=== PATIENT | female | born 1935 | race Caucasian/White ===

== ENCOUNTER 2018-02-09 16:09 | Inpatient (IN) | payer MEDICARE ==
[2018-02-09] MEDS ORDERED: Nitroglycerin 2% Ointment 1 INCH/1 GM Packet ONE ×2 (18:33→18:35)
[2018-02-10] MEDS ORDERED: Dextrose 50% Abboject 50 ML SYRINGE SLOW IVP PRN (01:21)
[2018-02-10] MEDS ORDERED: HumaLOG 300 UNITS/3 ML VIAL SC PRN (01:21)
[2018-02-10] MEDS ORDERED: Dextrose 5% in Water 1,000 ML IV PRN (01:21)
[2018-02-10] MEDS ORDERED: Acetaminophen 325 MG TAB PO PRN (01:21)
[2018-02-10] MEDS ORDERED: Guaifenesin DM 100-10/5 ML UDCUP PO PRN (01:21)
[2018-02-10 05:52] LABS: #Eosinphils 0.2 thou/uL (0.0-0.7); #Lymphocytes 1.1 thou/uL (1.20-3.40); #Monocytes 0.4 thou/uL (0.11-0.59); #Neutrophils 2.7 thou/uL (1.40-6.50); %Eosinophils 4.5 % (0.0-10.0); %Lymphocytes 25.3 % (21.0-51.0); %Monocytes 8.8 % (0.0-10.0); %Neutrophils 60.5 % (42.0-75.0); Hemoglobin 11.6 g/dL (12.0-16.0); Mean Corpuscular HGB CONC 34.2 g/dL (32.0-36.0); Mean Corpuscular Volume 87.8 fl (81.0-99.0); Mean Platelet Volume 7.9 fL (7.4-10.4); Platelet Count 169 thou/uL (130-400); RBC Distribution Width 13.5 % (11.5-14.5); Red Blood Cell (RBC) Count 3.88 mill/uL (4.20-5.40); White Blood Cell (WBC) Count 4.5 thou/uL (4.8-10.8)
[2018-02-10] MEDS: Levothyroxine Sodium 100 MCG TAB PO SCH (06:02)
[2018-02-10 06:08] LABS: Anion Gap 9 mmol/L (10-20); BUN (Urea Nitrogen) 12 mg/dL (9.8-20.1); Calc. Creatinine Clearance 78 mL/min (70-130); Calcium 8.5 mg/dL (7.8-10.44); Carbon Dioxide 25 mmol/L (23-31); Chloride 108 mmol/L (98-107); Cholesterol 140 mg/dl (< 200 Desired); Estimated GFR-MDRD 65; Glucose 124 mg/dL (83-110); HDL Cholesterol 35 mg/dL (>60 Neg Risk); LDL Cholesterol, Calculated 80 mg/dL; Potassium 3.6 mmol/L (3.5-5.1); Triglycerides 124 mg/dL (Less than 150)
[2018-02-10 06:13] LABS: Sodium 138 mmol/L (136-145)
--- NOTE | 2018-02-10 06:31 | HP ---
REASON FOR ADMISSION: TIA. HISTORY OF PRESENT ILLNESS: The patient gives history of having fallen off a chair while at work. She could not get up. Coworkers called EMS and the next thing she knows is she was in [facility]. There are no complaints of any weakness at present. She apparently had left-sided weakness with facial droop at [facility] per ER records, but patient does not recall any of it. She currently feels good. She normally ambulates by herself. She works in an insurance company on Tuesdays and . She does mention that she has prior history of stroke in 2016 with left-sided weakness which has completely resolved and had no residual weakness. She has chronic left upper extremity paraesthesias. PAST MEDICAL AND SURGICAL HISTORY: History of prior CVA, chronic left upper extremity paraesthesia, hypothyroidism, diabetes mellitus type 2, hypertension, dyslipidemia, right knee surgery. CURRENT MEDICATIONS: The patient takes aspirin 81 mg p.o. daily, levothyroxine 100 mcg p.o. daily, Norvasc 5 mg p.o. daily, lovastatin 20 mg p.o. daily, empagliflozin/linagliptin 25/5 mg 1 tab daily. ALLERGIES: SHELLFISH and METFORMIN. PERSONAL HISTORY: Does not abuse alcohol or drugs. No history of smoking. She lives by herself. She has 1 son and 2 daughters. FAMILY HISTORY: Mother at the age of 82 years. She has had history of CVA. Father in his 80s, had cancer spread to the bones. CODE STATUS: Full. Power of state attorney is her son, Mr. Lorenzo Heart. REVIEW OF SYSTEMS: The following complete review of systems was negative, unless otherwise mentioned in the HPI or below: Constitutional: Weight loss or gain, ability to conduct usual activities. Skin: Rash, itching. Eyes: Double vision, pain. ENT/Mouth: Nose bleeding, neck stiffness, pain, tenderness. Cardiovascular: Palpitations, dyspnea on exertion, orthopnea. Respiratory: Shortness of breath, wheezing, cough, hemoptysis, fever or night sweats. Gastrointestinal: Poor appetite, abdominal pain, heartburn, nausea, vomiting, constipation, or diarrhea. Genitourinary: Urgency, frequency, dysuria, nocturia. Musculoskeletal: Pain, swelling. Neurologic/Psychiatric: Anxiety, depression. Allergy/Immunologic: Skin rash, bleeding tendency. PHYSICAL EXAMINATION: GENERAL: The patient is an 82-year-old female who is currently not in any acute distress. VITAL SIGNS: Blood pressure 160/74, pulse 72 per minute, respiratory rate 16 per minute, temperature 97.7 degrees Fahrenheit, saturating 96% on room air. NECK: Supple, no elevated JVD. HEENT: Eyes; extraocular muscles intact. Pupils reacting to light. Oral cavity; mucous membranes are moist. No exudates or congestion. CARDIOVASCULAR: S1, S2 heard. Regular rhythm. RESPIRATORY: Air entry 1+ bilaterally. No rales or rhonchi. ABDOMEN: Soft, bowel sounds heard. No tenderness, rigidity or guarding. EXTREMITIES: No peripheral edema or calf tenderness. VASCULAR SYSTEM: Peripheral pulses 1+ bilateral, no ischemic ulcerations or gangrene. CENTRAL NERVOUS SYSTEM: Cranial nerves are grossly intact. Motor system; strength is 5/5 in all 4 extremities. Patient is right handed. The patient has chronic left upper extremity paraesthesias, but none in the lower extremity. Cerebellar signs are grossly intact. Gait was not tested. PSYCHIATRIC: The patient's mood is euthymic. No hallucinations or delusions. LABORATORY AND X-RAY FINDINGS: Most of her labs were done at [facility]. EKG done shows normal sinus rhythm at 68 beats per minute. Sodium 139, potassium 3.9, chloride 106, serum bicarbonate 22, BUN 15, creatinine 1.0. Serum glucose 212, albumin 3.8. CK level 46. Troponin I less than 0.01. White count of 5, H &H 13 and 34, platelet count 177, MCV is 83 with 70% neutrophils. PT/INR is 13 and 1.0, PTT 30. CT brain done at [facility] shows basal ganglia lacunar infarct which is present in both sides, but right is larger than left of indeterminate age. CLINICAL IMPRESSION AND PLAN: The patient will be under observation on the stroke unit for possible TIA. She currently has no motor weakness as such. We will follow TIA evidence based protocol. The patient will have a MRI brain without contrast to better delineate her brain structures in view of her prior CVA. An echo with 2D Doppler for LV function and valvular structures. We will continue her on aspirin, Norvasc, Synthroid, Zocor, and her home dose of empagliflozin and linagliptin. Please note the patient is very functional at home and ambulates by herself and is still working 2 days a week, although she is 82 years old. The patient's initial NIH score was just 1 and no t-PA was given due to rapidly resolving symptoms in the ER. We will continue. Code status was discussed and the patient is full code. Please note I have seen and examined patient on 02/09/2018. RICHARD
--- NOTE | 2018-02-10 07:55 | PDOC.PN ---
- Subjective Encounter Start Date: 02/10/18 Encounter Start Time: 07:54 Subjective: alert, no weakness, etc. walking with PT - Objective Resuscitation Status: Resuscitation Status FULL:Full Resuscitation MAR Reviewed: Yes Vital Signs & Weight: Vital Signs (12 hours) Temp Pulse Resp BP Pulse Ox 02/10/18 05:10 67 18 170/72 H 02/09/18 22:25 97.6 F 70 18 93 L Weight Weight 205 lb 1.6 oz Result Diagrams: 02/10/18 05:09 02/10/18 05:09 Additional Labs: Accuchecks 02/10/18 06:05 POC Glucose 133 H Radiology Reviewed by me: Yes (MRI brain-2 areas acute/ subacute infarct) Phys Exam - Physical Examination Neurological: non-focal, normal sensation, moves all 4 limbs CN 2-12 nl Psychiatric: A&O x 3 Dx/Plan (1) TIA (transient ischemic attack) Status: Ruled-out (2) DM type 2 (diabetes mellitus, type 2) Status: Acute Qualifiers: Diabetes mellitus complication status: without complication (3) HTN (hypertension) Code(s): I10 - ESSENTIAL (PRIMARY) HYPERTENSION Status: Chronic (4) Dyslipidemia Code(s): E78.5 - HYPERLIPIDEMIA, UNSPECIFIED Status: Chronic (5) CVA (cerebral vascular accident) Code(s): I63.9 - CEREBRAL INFARCTION, UNSPECIFIED Status: Acute - Plan cont ASA, statin -: cont accu/ ss -: discussed with Tamia Elena, Dr Julio C Lopez will see -: change to full admit - DX CVA, * .
[2018-02-10] MEDS: Amlodipine 5 MG TAB PO SCH (08:46)
[2018-02-10] MEDS: Aspirin 325 mg Enteric Coated Tablet PO SCH (08:47)
[2018-02-10] MEDS: Docusate 100 MG CAP PO SCH ×2 (08:47→21:01)
[2018-02-10] MEDS: Enoxaparin Sodium 40 MG/0.4 ML SYRINGE SC SCH (08:47)
[2018-02-10] MEDS: Famotidine 20 MG TAB PO SCH (08:48)
[2018-02-10] MEDS ORDERED: Aspirin 325 MG TAB PO SCH (09:00)
[2018-02-10] MEDS ORDERED: Empagliflozin/Linagliptin [Glyxambi 25 Mg-5 Mg Tablet] PO SCH ×2 (09:00)
--- NOTE | 2018-02-10 11:23 | ULT ---
BILATERAL CAROTID DUPLEX ULTRASOUND: HISTORY: TIA. TECHNIQUE: Anderson scale, color flow, and spectral Doppler imaging of the extracranial carotid artery system was pe rformed bilaterally. FINDINGS: There is plaque formation on either side. The peak systolic velocity in the right ICA measures 59 cm/s with an end-diastolic velocity of 16 cm/ s and a systolic ratio of 0.72. The peak systolic velocity in the left ICA measures 66 cm/s with an end-diastolic velocity of 17 cm/s and a systolic ratio of 0.86. Flow in both vertebral arteries remains antegrade. IMPRESSION: No evidence of hemodynamically significant stenosis. POS: [facility]
--- NOTE | 2018-02-10 12:24 | MRI ---
MRI OF THE BRAIN WIHTOUT CONTRAST: INDICATION: History of TIA. COMPARISON: MRI of the brain dated 02/08/16. TECHNIQUE: Multiplanar, multisequence MRI images were obtained of the brain without IV contrast. FINDINGS: There are new focal areas of subacute infarction involving the right caudate head, right caudate body , and right globus pallidus. There are remote lacunar infarctions involving the left caudate head an d left globus pallidus. There is generalized cerebral and cerebellar atrophy. There are appropriate flow voids within the major intracranial vessels. Skull and extracranial soft tissues are unremarka ble. No acute intracranial hemorrhage is demonstrated. There is a focal T2 hyperintensity now present within the splenium of the corpus callosum without res tricted diffusion. This is new from the comparison in 2016. IMPRESSION: 1. Subacute lacunar infarctions involving the right caudate and right globus pallidus. 2. Chronic lacunar infarctions involving the left caudate head and left globus pallidus. 3. Generalized cerebral and cerebellar atrophy. 4. T2 hyperintensity involving the splenium of the corpus callosum without restricted diffusion like ly reflects sequelae of a chronic ischemic injury. POS: [facility]
[2018-02-10] MEDS ORDERED: Simvastatin 5 MG TAB PO SCH (21:00)
--- NOTE | 2018-02-11 02:08 | CON ---
DATE OF CONSULTATION: 02/11/2018 REFERRING PHYSICIAN: Dr. Sapna Ruggiero. REASON FOR CONSULTATION: Stroke. HISTORY OF PRESENT ILLNESS: Ms. Heart is a pleasant 82-year-old female who has been con sulted for evaluation of left-sided weakness and stroke. Patient reports that yesterday she was at w ork and suddenly had fell off the chair. She was trying to get up off the floor; however, she could not, she felt weak all over. Finally, the coworker at work found her on the floor and had helped her to get onto the sit in the chair. She was about to take her to the emergency room when she realized that she was again leaning toward her left side and about to fall down. At that point, she had call ed EMS. She was taken to [facility], where she had a CT head without contrast done, wh ich was unremarkable and thus transferred over to [facility] for further evaluation. On arrival here, she reports that her symptoms have been improving. She denies any headache, chest p ain, palpitation, vision changes, diplopia, ptosis, numbness, tingling on face or upper extremities o r lower extremities. She does have chronic tingling sensation in the left upper extremity after her stroke in 2016. She reports that she takes aspirin 81 mg daily since her stroke in 2016. PAST MEDICAL HISTORY: Significant for hypertension, diabetes, hyperlipidemia, history of stroke in 2 016. PAST SURGICAL HISTORY: Significant for right knee surgery. SOCIAL HISTORY: She denies smoking, alcohol use, or illicit drug use. She currently lives alone. S he works at an [employer] company Tuesdays and . FAMILY HISTORY: Noncontributory. CURRENT MEDICATIONS: Please review NOV. ALLERGIES: Include SHELLFISH and METFORMIN. REVIEW OF SYSTEMS: As mentioned above in HPI, otherwise negative. PHYSICAL EXAMINATION: VITAL SIGNS: Blood pressure 129/62, pulse of 82, temperature 97.7, respirations of 16, O2 sats on 95 % on room air. GENERAL: Well-developed, well-nourished female in no apparent distress. RESPIRATORY: Clear to auscultation bilaterally. CARDIOVASCULAR: Regular rate and rhythm. NEUROLOGIC: Mental status: Patient is awake, alert, oriented x3. Speech and language: Fluent spee ch. Cranial nerves: Pupils are 3 mm and reactive. Visual mobley are intact. External muscles are intact. No nystagmus. Face is symmetric. Tongue and uvula are midline. Motor exam showed normal t one and bulk with 5/5 strength in both upper and lower extremities. Sensory: Sensation is intact an d symmetric. Deep tendon reflexes 2+ of flexion with both upper and lower extremities. Babinski: P lantar responses flexion bilaterally. Coordination intact to [id number] and finger tapping b ilaterally. LABORATORY DATA: Reviewed, which included CBC, BMP, and lipid profile, which is significant for WBC of 4.5, hemoglobin 11.6, hematocrit of 34.1. Glucose of 202, otherwise unremarkable. IMAGING STUDIES: MRI brain without contrast was reviewed, which showed no acute right caudate head i schemic infarct to hypertension. ASSESSMENT AND PLAN: Ms. Heart is a pleasant 82-year-old female who presented with left -sided weakness. She is found to have acute right caudate head ischemic infarct. Based on the locat ion, this is likely secondary to poorly controlled blood pressure and diabetes. At this time, I woul d recommend increasing her aspirin to 325 mg daily for secondary stroke prevention. I would recommen d obtaining echocardiogram. I would recommend consulting PT, OT, speech therapy. If echocardiogram is unremarkable, patient is okay to be discharged to home with outpatient therapy. I have advised he r that she needs to control her blood pressure and diabetes. I have also advised her to measure bloo d pressure at least once a day and make a diary, so that her primary care physician can adjust her bl ood pressure medicine based on the data provided. Thank you for consultation.
[2018-02-11] MEDS: Levothyroxine Sodium 100 MCG TAB PO SCH (06:15)
--- NOTE | 2018-02-11 07:44 | PDOC.PN ---
- Subjective Encounter Start Date: 02/11/18 Encounter Start Time: 07:45 Subjective: fine - Objective MAR Reviewed: Yes Vital Signs & Weight: Vital Signs (12 hours) Temp Pulse Resp BP Pulse Ox 02/11/18 04:12 98.5 F 65 16 126/77 96 02/11/18 00:00 98.1 F 68 16 149/76 H 96 02/10/18 20:57 97.6 F 69 18 95 I&O: 02/10/18 02/11/18 02/12/18 06:59 06:59 06:59 Intake Total 240 Balance 240 Result Diagrams: 02/10/18 05:09 02/10/18 05:09 Additional Labs: Accuchecks 02/11/18 02/10/18 02/10/18 05:31 21:17 17:15 POC Glucose 123 H 106 202 H Phys Exam - Physical Examination Neck: no JVD Respiratory: clear to auscultation bilateral Cardiovascular: RRR, no significant murmur Gastrointestinal: soft, non-tender Musculoskeletal: no edema Neurological: non-focal Dx/Plan (1) TIA (transient ischemic attack) Status: Ruled-out (2) DM type 2 (diabetes mellitus, type 2) Status: Acute Qualifiers: Diabetes mellitus complication status: without complication (3) HTN (hypertension) Code(s): I10 - ESSENTIAL (PRIMARY) HYPERTENSION Status: Chronic (4) Dyslipidemia Code(s): E78.5 - HYPERLIPIDEMIA, UNSPECIFIED Status: Chronic (5) CVA (cerebral vascular accident) Code(s): I63.9 - CEREBRAL INFARCTION, UNSPECIFIED Status: Acute - Plan cont current plan of detention post ECHO-cardiagram * .
[2018-02-11] MEDS: Famotidine 20 MG TAB PO SCH (08:24)
[2018-02-11] MEDS: Amlodipine 5 MG TAB PO SCH (08:24)
[2018-02-11] MEDS: Aspirin 325 mg Enteric Coated Tablet PO SCH (08:24)
[2018-02-11] MEDS: Docusate 100 MG CAP PO SCH (08:24)
[2018-02-11] MEDS: Enoxaparin Sodium 40 MG/0.4 ML SYRINGE SC SCH (08:25)
[2018-02-11] MEDS ORDERED: Levothyroxine 175 MCG TAB PO SCH (09:00)
[2018-02-11 11:44] VITALS: BP 132/84; TEMP 97.1
--- NOTE | 2018-02-11 15:27 | DIS ---
DATE OF ADMISSION: 02/09/2018 DATE OF DISCHARGE: 02/11/2018 PRIMARY CARE PROVIDER: Brandon Bennett. DISCHARGE DISPOSITION: Home. DIAGNOSES: Cerebral infarction, diabetes mellitus type 2, hypertension, dyslipidemia. DISCHARGE MEDICATIONS: Same as her admitting medications except her aspirin was increased from 81 mg a day to 325 mg a day, amlodipine 5 mg a day, Glyxambi 25/5 one a day, levothyroxine 175 mcg a day, Mevacor 20 mg at bedtime. ALLERGIES: METFORMIN and SHELLFISH. CODE STATUS: FULL. PENDING AT THE TIME OF DISCHARGE: Nothing. HOSPITAL COURSE: The patient admitted to the hospital with falling out of a chair being unable to ge t up. She had left-sided weakness and facial droop initially. She normally ambulates alone. She flores d stroke in 2015 with left-sided weakness which resolved. Her initial brain CT showed no evidence of acute intracranial process. MRI subacute lacunar infarctions in the right caudate and right globus pallidus. Carotid ultrasound revealed no evidence of hemodynamic significant stenosis. Flow in both vertebral arteries were antegrade . INITIAL LABORATORY DATA: CBC: White count 4.5, hemoglobin 11.6, platelet count 169,000. Comp metab olic profile; blood sugar 124, chloride 108, otherwise normal. Blood sugars were monitored and staye d in a reasonable range during her hospital stay, last three were 106, 123, and 142. She was seen in consultation by Dr. Linda Lopez, who recommended current therapy and an echocardiogram. Unfortunatel y, she has been here and echocardiogram will not be done today. I have discussed this with her and h er family and she is very desirous of going home and having it done as an outpatient. No procedures were done. She has been advised to see Dr. Anderson within 7 days to have him arrange for an outpatient echocardiogram. PHYSICAL EXAMINATION: VITAL SIGNS: Blood pressure 132/84, pulse 64, respirations 20, O2 saturation 94%, temperature 97.1. CARDIORESPIRATORY: Normal. NEUROLOGIC: Cranial nerves II-XII are intact. Deep tendon reflexes symmetric. Moves all extremitie s normally.
== END 2018-02-11 15:56 | disposition home or self-care (01) | DRG 65 ==
LOC: ERS 16:09 → 2SW 18:23 → OBSVTOIN 02-10 14:57 → 2SE 02-10 17:07
PROVIDERS: ADMIT Emergency Medicine; ATTEND Emergency Medicine
DX: I63.9 Cerebral infarction, unspecified (principal); G81.94 Hemiplegia, unspecified affecting left nondominant side; E11.9 Type 2 diabetes mellitus without complications; I10 Essential (primary) hypertension; E78.5 Hyperlipidemia, unspecified; E03.9 Hypothyroidism, unspecified
CPT/HCPCS: 36415; 36416; 70551; 80048; 80061; 85025; 93880; 99285; G8978-GP-CK; G8979-GP-CK; G8980-GP-CK; G8987-GO-CI; G8988-GO-CI; G8989-GO-CI; G8999-GN-CH; G9158-GN-CH; G9186-GN-CH; J1650